=== PATIENT | female | born 1965 | race Caucasian/White ===

== ENCOUNTER 2017-12-05 12:37 | Observation (INO) | payer BC, OTHER ==
--- NOTE | 2017-12-05 13:00 | ED ---
General Adult HPI - General Chief complaint: Dizziness Stated complaint: Rapid Heart Rate, Light headed Time Seen by Provider: 12/05/17 12:40 Source: patient, RN notes reviewed Mode of arrival: wheelchair Limitations: no limitations - History of Present Illness Initial comments: This is a 52-year-old female presents emergency Department complaining of chest palpitations which she felt to be irregular. Patient also states she was short of breath with these symptoms. Patient also complained of jaw pain and arm heaviness. Patient states she did have some discomfort in her chest but she related that to the palpitations. Patient states it started at 4:30 and resolved at about 6:00 and then she went back to bed and she states she's been lying in better since just feeling extremely weak and continues to have the arm heaviness. Patient states she also felt a little lightheaded. Patient denies any recent fever chills or cough. Patient denies any history of diabetes hypertension or high cholesterol. Patient denies any history of smoking. Patient states she has no significant family history of heart disease. Patient denies abdominal pain patient denies nausea vomiting diarrhea. - Related Data Home Medications Medication Instructions Recorded Confirmed Loratadine [Claritin] 10 mg PO DAILY PRN 12/05/17 12/05/17 Allergies Allergy/AdvReac Type Severity Reaction Status Date / Time No Known Allergies Allergy Verified 12/05/17 12:58 Review of Systems ROS Statement: Those systems with pertinent positive or pertinent negative responses have been documented in the HPI. ROS Other: All systems not noted in ROS Statement are negative. Past Medical History Past Medical History: No Reported History History of Any Multi-Drug Resistant Organisms: None Reported Additional Past Surgical History / Comment(s): phlebectomy Past Psychological History: No Psychological Hx Reported Smoking Status: Never smoker Past Alcohol Use History: Rare Past Drug Use History: None Reported General Exam - General Exam Comments Initial Comments: GENERAL: Patient is well-developed and well-nourished. Patient is nontoxic and well- hydrated and is in mild distress. ENT: Neck is soft and supple. No significant lymphadenopathy is noted. Oropharynx is clear. Moist mucous membranes. Neck has full range of motion without eliciting any pain. EYES: The sclera were anicteric and conjunctiva were pink and moist. Extraocular movements were intact and pupils were equal round and reactive to light. Eyelids were unremarkable. PULMONARY: Unlabored respirations. Good breath sounds bilaterally. No audible rales rhonchi or wheezing was noted. CARDIOVASCULAR: There is a regular rate and rhythm without any murmurs gallops or rubs. ABDOMEN: Soft and nontender with normal bowel sounds. No palpable organomegaly was noted. There is no palpable pulsatile mass. SKIN: Skin is clear with no lesions or rashes and otherwise unremarkable. NEUROLOGIC: Patient is alert and oriented x3. Cranial nerves II through XII are grossly intact. Motor and sensory are also intact. Normal speech, volume and content. Symmetrical smile. MUSCULOSKELETAL: Normal extremities with adequate strength and full range of motion. LYMPHATICS: No significant lymphadenopathy is noted PSYCHIATRIC: Normal psychiatric evaluation. Normal interpersonal interactions appears functionally intact in deals appropriately with others. No signs of depression. No signs of anxiety Limitations: no limitations Course Vital Signs 12/05/17 12/05/17 12/05/17 12:40 13:09 14:20 Temperature 98.1 F 98.1 F Pulse Rate 101 H 74 Pulse Rate [ 97 Roller Man ] Respiratory 18 16 Rate Blood Pressure 126/70 121/77 O2 Sat by Pulse 100 100 Oximetry Medical Decision Making - Medical Decision Making EKG shows sinus tachycardia at 102 bpm UT interval is 114 QRS 74 QT interval 326 QTC is 424. Patient's EKG shows no ST segment elevation or depression or T wave abnormalities are noted. - Lab Data Result diagrams: 12/05/17 13:00 12/05/17 13:00 Lab Results 12/05/17 12/05/17 12/05/17 Range/Units 13:00 13:00 13:00 WBC 5.1 (3.8-10.6) k/uL RBC 5.14 (3.80-5.40) m/uL Hgb 16.0 (11.4-16.0) gm/dL Hct 46.2 H (34.0-46.0) % MCV 89.8 (80.0-100.0) fL MCH 31.1 (25.0-35.0) pg MCHC 34.6 (31.0-37.0) g/dL RDW 12.7 (11.5-15.5) % Plt Count 256 (150-450) k/uL Neutrophils % 54 % Lymphocytes % 36 % Monocytes % 7 % Eosinophils % 1 % Basophils % 1 % Neutrophils # 2.8 (1.3-7.7) k/uL Lymphocytes # 1.8 (1.0-4.8) k/uL Monocytes # 0.3 (0-1.0) k/uL Eosinophils # 0.1 (0-0.7) k/uL Basophils # 0.0 (0-0.2) k/uL PT (9.0-12.0) sec INR (<1.2) APTT (22.0-30.0) sec D-Dimer (<0.60) mg/L FEU Sodium 142 (137-145) mmol/L Potassium 4.2 (3.5-5.1) mmol/L Chloride 103 (98-107) mmol/L Carbon Dioxide 25 (22-30) mmol/L Anion Gap 14 mmol/L BUN 10 (7-17) mg/dL Creatinine 0.69 (0.52-1.04) mg/dL Est GFR (CKD-EPI)AfAm >90 (>60 ml/min/1.73 sqM) Est GFR (CKD-EPI)NonAf >90 (>60 ml/min/1.73 sqM) Glucose 129 H (74-99) mg/dL Calcium 9.7 (8.4-10.2) mg/dL Magnesium 1.9 (1.6-2.3) mg/dL Total Bilirubin 0.6 (0.2-1.3) mg/dL AST 27 (14-36) U/L ALT 38 (9-52) U/L Alkaline Phosphatase 45 (38-126) U/L Total Creatine Kinase 103 (30-135) U/L CK-MB (CK-2) 1.9 (0.0-2.4) ng/mL CK-MB (CK-2) Rel Index 1.8 Troponin I 0.023 (0.000-0.034) ng/mL Total Protein 7.1 (6.3-8.2) g/dL Albumin 4.4 (3.5-5.0) g/dL 12/05/17 Range/Units 13:00 WBC (3.8-10.6) k/uL RBC (3.80-5.40) m/uL Hgb (11.4-16.0) gm/dL Hct (34.0-46.0) % MCV (80.0-100.0) fL MCH (25.0-35.0) pg MCHC (31.0-37.0) g/dL RDW (11.5-15.5) % Plt Count (150-450) k/uL Neutrophils % % Lymphocytes % % Monocytes % % Eosinophils % % Basophils % % Neutrophils # (1.3-7.7) k/uL Lymphocytes # (1.0-4.8) k/uL Monocytes # (0-1.0) k/uL Eosinophils # (0-0.7) k/uL Basophils # (0-0.2) k/uL PT 10.4 (9.0-12.0) sec INR 1.1 (<1.2) APTT 24.5 (22.0-30.0) sec D-Dimer 0.40 (<0.60) mg/L FEU Sodium (137-145) mmol/L Potassium (3.5-5.1) mmol/L Chloride (98-107) mmol/L Carbon Dioxide (22-30) mmol/L Anion Gap mmol/L BUN (7-17) mg/dL Creatinine (0.52-1.04) mg/dL Est GFR (CKD-EPI)AfAm (>60 ml/min/1.73 sqM) Est GFR (CKD-EPI)NonAf (>60 ml/min/1.73 sqM) Glucose (74-99) mg/dL Calcium (8.4-10.2) mg/dL Magnesium (1.6-2.3) mg/dL Total Bilirubin (0.2-1.3) mg/dL AST (14-36) U/L ALT (9-52) U/L Alkaline Phosphatase (38-126) U/L Total Creatine Kinase (30-135) U/L CK-MB (CK-2) (0.0-2.4) ng/mL CK-MB (CK-2) Rel Index Troponin I (0.000-0.034) ng/mL Total Protein (6.3-8.2) g/dL Albumin (3.5-5.0) g/dL Disposition Clinical Impression: Atypical angina Disposition: ADMITTED IP TO THIS [facility] Referrals: Darren Soliman MD [Primary Care Provider] - 1-2 days Time of Disposition: 14:21
[2017-12-05 13:18] LABS: Basophils % (A) 1 %; Eosinophils # (A) 0.1 k/uL (0-0.7); Eosinophils % (A) 1 %; HCT 46.2 % (34.0-46.0); Lymphocytes # (A) 1.8 k/uL (1.0-4.8); Lymphocytes % (A) 36 %; MCH 31.1 pg (25.0-35.0); MCHC 34.6 g/dL (31.0-37.0); MCV 89.8 fL (80.0-100.0); Mean Platelet Volume 6.9; Monocytes # (A) 0.3 k/uL (0-1.0); Monocytes % (A) 7 %; Neutrophils # (A) 2.8 k/uL (1.3-7.7); Neutrophils % (A) 54 %; Platelet Count 256 k/uL (150-450); RBC 5.14 m/uL (3.80-5.40); RDW 12.7 % (11.5-15.5); WBC 5.1 k/uL (3.8-10.6)
[2017-12-05 13:30] LABS: ALT 38 U/L (9-52); AST 27 U/L (14-36); Albumin 4.4 g/dL (3.5-5.0); Alkaline Phosphatase 45 U/L (38-126); Anion Gap 14 mmol/L; Blood Urea Nitrogen 10 mg/dL (7-17); Calcium 9.7 mg/dL (8.4-10.2); Carbon Dioxide 25 mmol/L (22-30); Chloride 103 mmol/L (98-107); Glucose 129 mg/dL (74-99); Magnesium 1.9 mg/dL (1.6-2.3); Potassium 4.2 mmol/L (3.5-5.1); Sodium 142 mmol/L (137-145); Total Bilirubin 0.6 mg/dL (0.2-1.3); Total Protein 7.1 g/dL (6.3-8.2)
[2017-12-05 13:32] LABS: D-Dimer 0.4 mg/L FEU (<0.60); INR 1.1 (<1.2); Partial Thromboplastin Time 24.5 sec (22.0-30.0); Prothrombin Time 10.4 sec (9.0-12.0)
--- NOTE | 2017-12-05 13:35 | XR ---
EXAMINATION TYPE: XR chest 2V DATE OF EXAM: 12/05/2017 COMPARISON: NONE HISTORY: Difficulty breathing TECHNIQUE: Frontal and lateral views of the chest are obtained. FINDINGS: There is no focal air space opacity, pleural effusion, or pneumothorax seen. The cardiac silhouette size is within normal limits. The osseous structures are intact. There are overlying car diac leads. IMPRESSION: No acute cardiopulmonary process.
[2017-12-05 14:00] LABS: Creatine Kinase MB 1.9 ng/mL (0.0-2.4); Troponin I 0.023 ng/mL (0.000-0.034)
[2017-12-05] MEDS ORDERED: NITROGLYCERIN SL TABS 0.4 MG TAB SUBLINGUAL PRN (14:22)
[2017-12-05] MEDS: NITROGLYCERIN OINT 1 INCH/GM PACKET TOPICAL SCH ×2 (19:45→23:19)
[2017-12-05 20:12] LABS: Creatine Kinase MB 1.4 ng/mL (0.0-2.4)
[2017-12-05 20:17] LABS: Troponin I 0.041 ng/mL (0.000-0.034)
[2017-12-05] MEDS ORDERED: HEPARIN SODIUM,PORCINE 5,000 UNIT/ML 1 ML VIAL IV PRN (20:53)
[2017-12-05] MEDS ORDERED: HEPARIN SODIUM,PORCINE 5,000 UNIT/ML 1 ML VIAL IV ONE (21:00)
[2017-12-05] MEDS ORDERED: HEPARIN SODIUM,PORCINE/D5W PMX 25,000 UNIT in DEXTROSE/WATER 1 500ML.BAG IV SCH (21:15)
[2017-12-05 21:26] LABS: INR 1.1 (<1.2); Partial Thromboplastin Time 24.1 sec (22.0-30.0); Prothrombin Time 10.7 sec (9.0-12.0)
[2017-12-06 02:40] LABS: Troponin I 0.04 ng/mL (0.000-0.034)
[2017-12-06] MEDS: NITROGLYCERIN OINT 1 INCH/GM PACKET TOPICAL SCH (04:57)
[2017-12-06 05:09] LABS: Basophils % (A) 1 %; Eosinophils # (A) 0.1 k/uL (0-0.7); Eosinophils % (A) 2 %; HCT 40.7 % (34.0-46.0); HGB 13.8 gm/dL (11.4-16.0); Lymphocytes # (A) 2.3 k/uL (1.0-4.8); Lymphocytes % (A) 42 %; MCH 31.1 pg (25.0-35.0); MCHC 33.9 g/dL (31.0-37.0); MCV 91.9 fL (80.0-100.0); Monocytes # (A) 0.4 k/uL (0-1.0); Monocytes % (A) 7 %; Neutrophils # (A) 2.5 k/uL (1.3-7.7); Neutrophils % (A) 46 %; Platelet Count 174 k/uL (150-450); RBC 4.43 m/uL (3.80-5.40); RDW 12.7 % (11.5-15.5); WBC 5.5 k/uL (3.8-10.6)
[2017-12-06] MEDS ORDERED: LORATADINE 10 MG TAB PO PRN (06:54)
--- NOTE | 2017-12-06 07:10 | P.HPIM ---
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 She came in essentially because of posterior headache with significant palpitations and rapidity of heart beat. Some nausea and dizziness but she also had some intermittent jaw pain. She states last month while doing some yard work, she and bending over she started having "heartburn" type symptoms. She is somewhat discounted this as GI-related but states that her symptoms haven't is somewhat starting since about 4 weeks ago. They became more prominent in the last 48 hours and she came in for appropriate evaluation. Troponin is slightly elevated at this time. She has minimal risk factors except she is not very active as far as exercise but works and stands as a beautician. She is nonsmoker. No significant family history of premature heart disease. Although she states heart disease in a grandmother on maternal side. Review of Systems Constitutional: Denies chills, Denies fever Eyes: denies blurred vision, denies pain Ears, nose, mouth and throat: Denies headache, Denies sore throat Respiratory: Denies cough Gastrointestinal: Denies abdominal pain, Denies diarrhea, Denies nausea, Denies vomiting Genitourinary: Denies dysuria, Denies hematuria Musculoskeletal: Denies myalgias Past Medical History Past Medical History: No Reported History Additional Past Medical History / Comment(s): Seasonal sinus problems, bronchitis, palpitations/"heart burn" and some SOB past month. History of Any Multi-Drug Resistant Organisms: None Reported Past Surgical History: Orthopedic Surgery, Uterine Ablation Additional Past Surgical History / Comment(s): Bilateral legs varicose vein stripping, D&C, uterine ablation, R dorsal foot bone spur removed. Past Anesthesia/Blood Transfusion Reactions: Postoperative Nausea & Vomiting ( PONV) Smoking Status: Never smoker - Past Family History Father Family Medical History: COPD Additional Family Medical History / Comment(s): Father was a smoker. Mother Family Medical History: Cancer Additional Family Medical History / Comment(s): Mother had leukemia and tuberculosis. Grandmother on mom's side had CAD/pacer. Medications and Allergies Home Medications Medication Instructions Recorded Confirmed Type Loratadine [Claritin] 10 mg PO DAILY PRN 12/05/17 12/05/17 History Allergies Allergy/AdvReac Type Severity Reaction Status Date / Time No Known Allergies Allergy Verified 12/05/17 12:58 Physical Exam Vitals: Vital Signs Temp Pulse Pulse Resp BP BP Pulse Ox 12/06/17 04:45 97.3 F L 68 16 136/66 96 12/05/17 23:10 98.3 F 74 16 117/61 94 L 12/05/17 20:00 96.8 F L 70 16 123/67 96 12/05/17 16:58 74 18 12/05/17 16:54 97.3 F L 74 18 140/84 99 12/05/17 15:25 97.8 F 68 16 133/82 99 12/05/17 14:20 98.1 F 74 16 121/77 100 12/05/17 13:09 97 12/05/17 12:40 98.1 F 101 H 18 126/70 100 Intake and Output 12/05/17 12/06/17 12/06/17 22:59 06:59 14:59 Intake Total 240 172 Output Total 325 Balance -85 172 Intake: Intake, IV Titration 172 Amount Heparin Sodium,Porcine/ 172 D5w Pmx 25,000 unit In Dextrose/Water 1 500ml. bag @ 11.096 UNITS/KG/HR 20 mls/hr IV .Q24H [facility] Rx #:[id number] Oral 240 Output: Urine 325 Other: # Voids 1 Weight 90.4 kg - Constitutional General appearance: no acute distress - EENT Eyes: EOMI - Neck Neck: no lymphadenopathy - Respiratory Respiratory: bilateral: CTA - Cardiovascular Rhythm: regular Heart sounds: normal: S1, S2 Abnormal Heart Sounds: no S3 Gallop - Gastrointestinal General gastrointestinal: soft, no tenderness - Integumentary Integumentary: no cellulitis - Neurologic Neurologic: CNII-XII intact - Psychiatric Psychiatric: A&O x's 3, appropriate affect, intact judgment & insight Results CBC & Chem 7: 12/06/17 04:54 12/05/17 13:00 Labs: Abnormal Lab Results - Last 24 Hours (Table) 12/05/17 12/05/17 12/05/17 Range/Units 13:00 13:00 19:05 Hct 46.2 H (34.0-46.0) % APTT (22.0-30.0) sec Glucose 129 H (74-99) mg/dL Troponin I 0.041 H* (0.000-0.034) ng/mL 12/06/17 12/06/17 Range/Units 00:49 04:54 Hct (34.0-46.0) % APTT 43.1 H (22.0-30.0) sec Glucose (74-99) mg/dL Troponin I 0.040 H* (0.000-0.034) ng/mL Thrombosis Risk Factor Assmnt - Choose All That Apply Any of the Below Risk Factors Present?: Yes Each Factor Represents 1 point: Age 41-60 years, Obesity (BMI >25) Other Risk Factors: No Other congenital or acquired thrombophilia - If yes, enter type in comment: No Thrombosis Risk Factor Assessment Total Risk Factor Score: 2 Thrombosis Risk Factor Assessment Level: Low Risk Assessment and Plan (1) Atypical angina Current Visit: Yes Status: Acute Code(s): I20.8 - OTHER FORMS OF ANGINA PECTORIS SNOMED Code(s): 824384666 (2) Allergic rhinitis Current Visit: Yes Status: Acute Code(s): J30.9 - ALLERGIC RHINITIS, UNSPECIFIED SNOMED Code(s): 78081006 Plan: Given the atypical nature of her symptomatology, question stress thallium versus stress echo. Cardiology is not consulted. Rule out myocardial infarction. Slight elevation of troponin. She is a full code otherwise. Anticipate discharge in next 24-40 hours if a symptomatically and cardiac testing is nominal. Time with Patient: Greater than 30
[2017-12-06 07:21] LABS: Cholesterol 168 mg/dL (<200); HDL Cholesterol 51 mg/dL (40-60); LDL Cholesterol,Calculated 101 mg/dL (0-99); Triglycerides 80 mg/dL (<150)
--- NOTE | 2017-12-06 08:05 | P.CRDCN ---
History of Present Illness Consult date: 12/06/17 Requesting physician: Darren Soliman Consult reason: chest pain Chief complaint: Chest pain History of present illness: This pleasant 52-year-old female with no prior documented history of hypertension, no diabetes, no hyperlipidemia, nonsmoker, she does drink several cups of coffee a day and occasionally drinks alcohol. She presents to the hospital with symptoms of heart racing and palpitations, which she states woke her up from sleep around 4 AM Tuesday morning. She states that she tried to lay still and takes a deep breath to see if the symptoms would dissipate, they seemed to last for a while but ultimately subsided, shortly thereafter they return patient care to the emergency room for further evaluation. Patient states that it feels like her heart is beating fast and irregular time this occurs. She also states that approximately one month ago when she was working in her garden that she noticed symptoms of burning in her chest which she thought may be acid reflux attributed to her excessive caffeine intake. Patient also states that when she is out walking with her she has noticed that she gets more short of breath than her usual. At the time of my examination this morning she is comfortable, denies any chest discomfort, no palpitations, no shortness of breath. Initial EKG on presentation here showed a sinus tachycardia with no acute changes. Subsequent EKG this morning shows a normal sinus rhythm with no acute changes. Blood pressure 136/60 heart rate in the 60s, temperature 97.3 she is 96% on room air. CBC is normal, d-dimer 0.4, sodium 142, potassium 4.2, BUN 10, creatinine 0.6. Neck exam level I.9. Initial troponin 0.0-3, subsequent troponin 0.041 and 040. Cholesterol is 168, LDL 101, HDL 51, triglycerides 80. Patient was initiated on IV heparin in the emergency room, she is also on a baby aspirin and sublingual nitroglycerin. Past Medical History Past Medical History: No Reported History Additional Past Medical History / Comment(s): Seasonal sinus problems, bronchitis, palpitations/"heart burn" and some SOB past month. History of Any Multi-Drug Resistant Organisms: None Reported Past Surgical History: Orthopedic Surgery, Uterine Ablation Additional Past Surgical History / Comment(s): Bilateral legs varicose vein stripping, D&C, uterine ablation, R dorsal foot bone spur removed. Past Anesthesia/Blood Transfusion Reactions: Postoperative Nausea & Vomiting ( PONV) Smoking Status: Never smoker - Past Family History Father Family Medical History: COPD Additional Family Medical History / Comment(s): Father was a smoker. Mother Family Medical History: Cancer Additional Family Medical History / Comment(s): Mother had leukemia and tuberculosis. Grandmother on mom's side had CAD/pacer. Medications and Allergies Home Medications Medication Instructions Recorded Confirmed Type Loratadine [Claritin] 10 mg PO DAILY PRN 12/05/17 12/05/17 History Allergies Allergy/AdvReac Type Severity Reaction Status Date / Time No Known Allergies Allergy Verified 12/05/17 12:58 Physical Exam Vitals: Vital Signs Temp Pulse Pulse Resp BP BP Pulse Ox 12/06/17 04:45 97.3 F L 68 16 136/66 96 12/05/17 23:10 98.3 F 74 16 117/61 94 L 12/05/17 20:00 96.8 F L 70 16 123/67 96 12/05/17 16:58 74 18 12/05/17 16:54 97.3 F L 74 18 140/84 99 12/05/17 15:25 97.8 F 68 16 133/82 99 12/05/17 14:20 98.1 F 74 16 121/77 100 12/05/17 13:09 97 12/05/17 12:40 98.1 F 101 H 18 126/70 100 Intake and Output 12/05/17 12/06/17 12/06/17 22:59 06:59 14:59 Intake Total 240 172 Output Total 325 Balance -85 172 Intake: Intake, IV Titration 172 Amount Heparin Sodium,Porcine/ 172 D5w Pmx 25,000 unit In Dextrose/Water 1 500ml. bag @ 11.096 UNITS/KG/HR 20 mls/hr IV .Q24H [facility] Rx #:[id number] Oral 240 Output: Urine 325 Other: # Voids 1 Weight 90.4 kg PHYSICAL EXAMINATION: GENERAL: This is a pleasant 52-year-old female in no apparent distress at the time of my examination. HEENT: Head is atraumatic, normocephalic. Pupils equal, round. Sclera anicteric. Conjunctiva are clear. Mucous membranes of the mouth are moist. Neck is supple. There is no elevated jugular venous pressure.] bruit is heard. HEART EXAMINATION: Heart S1, S2 normal. No murmur or gallop heard. CHEST EXAMINATION: Lungs are clear to auscultation and precussion. No chest wall tenderness is noted on palpation or with deep breathing. ABDOMEN: Soft, nontender. Bowel sounds are heard. No organomegaly noted. EXTREMITIES: 2+ peripheral pulses with no evidence of peripheral edema and no calf tenderness noted. NEUROLOGIC patient is awake, alert and oriented -3. . Results 12/06/17 04:54 12/05/17 13:00 Cardiac Enzymes 12/05/17 12/05/17 12/05/17 Range/Units 13:00 13:00 19:05 AST 27 (14-36) U/L CK-MB (CK-2) 1.9 1.4 (0.0-2.4) ng/mL Troponin I 0.023 0.041 H* (0.000-0.034) ng/mL 12/06/17 Range/Units 00:49 AST (14-36) U/L CK-MB (CK-2) 1.0 (0.0-2.4) ng/mL Troponin I 0.040 H* (0.000-0.034) ng/mL Coagulation 12/05/17 12/05/17 12/06/17 Range/Units 13:00 20:59 04:54 PT 10.4 10.7 (9.0-12.0) sec APTT 24.5 24.1 43.1 H (22.0-30.0) sec Lipids 12/06/17 Range/Units 04:54 Triglycerides 80 (<150) mg/dL Cholesterol 168 (<200) mg/dL HDL Cholesterol 51 (40-60) mg/dL CBC 12/05/17 12/06/17 Range/Units 13:00 04:54 WBC 5.1 5.5 (3.8-10.6) k/uL RBC 5.14 4.43 (3.80-5.40) m/uL Hgb 16.0 13.8 (11.4-16.0) gm/dL Hct 46.2 H 40.7 (34.0-46.0) % Plt Count 256 174 (150-450) k/uL Comprehensive Metabolic Panel 12/05/17 Range/Units 13:00 Sodium 142 (137-145) mmol/L Potassium 4.2 (3.5-5.1) mmol/L Chloride 103 (98-107) mmol/L Carbon Dioxide 25 (22-30) mmol/L BUN 10 (7-17) mg/dL Creatinine 0.69 (0.52-1.04) mg/dL Glucose 129 H (74-99) mg/dL Calcium 9.7 (8.4-10.2) mg/dL AST 27 (14-36) U/L ALT 38 (9-52) U/L Alkaline Phosphatase 45 (38-126) U/L Total Protein 7.1 (6.3-8.2) g/dL Albumin 4.4 (3.5-5.0) g/dL Current Medications Generic Name Dose Route Start Last Admin Trade Name [place] PRN Reason Stop Dose Admin Aspirin 81 mg 12/06/17 09:00 Aspirin PO DAILY [facility] Heparin Sodium (Porcine) 0 unit 12/05/17 20:53 Heparin IV PER PROTOCOL PRN Low PTT Protocol Heparin Sodium/Dextrose 25,000 500 mls @ 20 mls/hr 12/05/17 21:15 12/06/17 06 :36 unit/ IV Solution IV 13.096 units/kg/hr .Q24H [facility] 23.6 mls/hr Protocol Titration 11.096 UNITS/KG/HR Loratadine 10 mg 12/06/17 06:54 Claritin PO DAILY PRN Allergy Symptoms Nitroglycerin 0.4 mg 12/05/17 14:22 Nitrostat SUBLINGUAL Q5M PRN Chest Pain Nitroglycerin 1 inch 12/05/17 18:00 12/06/17 04:57 Nitro-Bid Oint TOPICAL Not Given Q6HR [facility] Intake and Output 12/05/17 12/06/17 12/06/17 22:59 06:59 14:59 Intake Total 240 172 Output Total 325 Balance -85 172 Intake: Intake, IV Titration 172 Amount Heparin Sodium,Porcine/ 172 D5w Pmx 25,000 unit In Dextrose/Water 1 500ml. bag @ 11.096 UNITS/KG/HR 20 mls/hr IV .Q24H [facility] Rx #:[id number] Oral 240 Output: Urine 325 Other: # Voids 1 Weight 90.4 kg 12/06/17 04:54 12/05/17 13:00 EKG Interpretations (text) Initial EKG shows a sinus tachycardia with no acute changes. Subsequently EKG normal sinus rhythm with no acute changes. Assessment and Plan Plan: Assessment and plan #1 symptoms of palpitations and heart racing, somewhat atypical features for acute coronary syndrome. Troponins 0.023, 0.041, 0.040. EKG showed sinus tachycardia with no acute changes, subsequent EKG normal sinus with no acute changes. D-dimer negative. #2 cardiac risk factors negative for hypertension, no diabetes, no hyperlipidemia, nonsmoker, no family history of premature coronary artery disease. Plan We will obtain an echocardiogram with Doppler study. We will also obtain a fourth troponin value. Obtain TSH level. Patient has been advised by Dr. Nba Dumas to undergo stress echocardiographic study today. If negative patient will be discharged home from our perspective with a Holter monitor. If the test is positive, patient will be advised to undergo cardiac catheterization. DNP note has been reviewed, I agree with a documented findings and plan of care. Patient was seen and examined.
[2017-12-06] MEDS ORDERED: ASPIRIN 81 MG PO SCH (09:00)
[2017-12-06] MEDS ORDERED: ASPIRIN 325 MG TAB PO SCH (09:00)
[2017-12-06 10:08] VITALS: RESP 18
[2017-12-06 12:13] VITALS: BP 123/71; PULSE 65; TEMP 96.9
--- NOTE | 2017-12-06 13:00 | ECHOS ---
STRESS ECHOCARDIOGRAM DATE OF SERVICE: 12/06/2017 BASELINE HEART RATE: 78 BASELINE BLOOD PRESSURE: 115/70 MAXIMUM HEART RATE: 152 MAXIMUM BLOOD PRESSURE: 129/93 85% MPHR: 141 100% MPHR: 166 MAXIMUM STAGE REACHED: II TOTAL EXERCISE TIME: 7:32 CLINICAL INFORMATION: Baseline rhythm is sinus mechanism, rate of 78. Left axis deviation. Baseline blood pressure 115/70 mmHg. Patient exercised on Twin protocol for 7 minute 32 seconds reaching a peak heart rate of 152 beats per minute, which is equal, to 91% of maximum predicted heart rate. Peak blood pressure 129/93 mmHg. Test was terminated due to fatigue. No chest pain. Electrocardiograph monitoring revealed 0.[address]-segment depression that resolved in recovery. FINDINGS: Baseline echocardiogram revealed normal left ventricular function. At peak exercise, there was normal wall motion augmentation with no hypokinesis or dyskinesis. CONCLUSION: 1. Average exercise tolerance was borderline positive electrocardiographic stress testing. 2. Normal stress echocardiogram with no evidence of stress induced ischemia. MMODL / IJN: [id number] /
--- NOTE | 2017-12-06 13:36 | ECHOF ---
Referral Reason:chest pain MEASUREMENTS -------- HEIGHT: 167.6 cm WEIGHT: 90.3 kg BP: 136/66 IVSd: 1.1 cm (0.6 - 1.1) LVIDd: 4.5 cm (3.9 - 5.3) LVPWd: 0.9 cm (0.6 - 1.1) IVSs: 1.8 cm LVIDs: 2.3 cm LVPWs: 1.6 cm LAESV Index (A-L): 22.61 ml/m Ao Diam: 3.0 cm (2.0 - 3.7) AV Cusp: 1.9 cm (1.5 - 2.6) LA Diam: 2.9 cm (2.7 - 3.8) MV EXCURSION: 15.792 mm (> 18.000) MV EF SLOPE: 197 mm/s (70 - 150) EPSS: 0.4 cm MV E Rodney: 0.58 m/s MV DecT: 274 ms MV A Rodney: 0.42 m/s MV E/A Ratio: 1.39 RAP: 5.00 mmHg RVSP: 14.08 mmHg FINDINGS -------- Sinus rhythm. This was a technically adequate study. The left ventricular size is normal. Left ventricular wall thickness is normal. Overall left vent ricular systolic function is normal with, an EF between 55 - 60 %. The right ventricle is normal in size and function. The left atrium is normal in size. The right atrium is normal in size. The aortic valve is trileaflet, and appears structurally normal. No aortic stenosis or regurgitation. The mitral valve is normal. There is trace to mild mitral regurgitation. Trace tricuspid regurgitation present. Right ventricular systolic pressure is normal at < 35 mmHg. The right ventricular systolic pressure, as measured by Doppler, is 14.08mmHg. There is no pulmonic regurgitation present. The aortic root size is normal. Normal inferior vena cava with normal inspiratory collapse consistent with estimated right atrial pre ssure of 5 mmHg. There is no pericardial effusion. CONCLUSIONS -------- 1. Sinus rhythm. 2. This was a technically adequate study. 3. The left ventricular size is normal. 4. Left ventricular wall thickness is normal. 5. Overall left ventricular systolic function is normal with, an EF between 55 - 60 %. 6. The left atrium is normal in size. 7. The aortic valve is trileaflet, and appears structurally normal. No aortic stenosis or regurgitati on. 8. There is trace to mild mitral regurgitation. 9. Trace tricuspid regurgitation present. 10. Right ventricular systolic pressure is normal at < 35 mmHg. 11. There is no pulmonic regurgitation present. 12. The aortic root size is normal. 13. Normal inferior vena cava with normal inspiratory collapse consistent with estimated right atrial pressure of 5 mmHg. 14. There is no pericardial effusion. [employer] TEACHER: Patricia Shay RDCS
--- NOTE | 2017-12-06 15:49 | P.DS ---
Providers Date of admission: 12/05/17 14:22 Attending physician: Darren Soliman Consults: 12/05/17 14:22 Consult Physician Urgent Consulting Provider: [facility] Consult Reason/Comments: Atypical angina Do you want consulting provider notified?: Yes Primary care physician: Darren Soliman - Discharge Diagnosis(es) (1) Atypical angina Current Visit: Yes Status: Acute (2) Allergic rhinitis Current Visit: Yes Status: Acute Hospital Course: The patient is here essentially for atypical angina. Stress echocardiogram was done and cardiology was consulted. The patient was discharged in stable condition after negative stress testing to follow-up with me in 3 days. Plan - Discharge Summary Discharge Rx Participant: No New Discharge Prescriptions: No Action Loratadine [Claritin] 10 mg PO DAILY PRN PRN Reason: Allergy Symptoms Discharge Medication List Loratadine [Claritin] 10 mg PO DAILY PRN 12/05/17 [History] Follow up Appointment(s)/Referral(s): Darren Soliman MD [Primary Care Provider] - 1-2 days
== END 2017-12-06 17:21 | disposition home or self-care (01) ==
LOC: EC 12:37 → 6SEL 14:22
PROVIDERS: ADMIT Family Medicine; ATTEND Family Medicine
DX: I20.9 Angina pectoris, unspecified (principal); J30.9 Allergic rhinitis, unspecified; R00.0 Tachycardia, unspecified; R77.8 Other specified abnormalities of plasma proteins; R00.2 Palpitations; R12 Heartburn; E66.9 Obesity, unspecified; Z68.32 Body mass index [BMI] 32.0-32.9, adult; Z82.5 Family history of asthma and other chronic lower respiratory diseases; Z80.6 Family history of leukemia; Z83.1 Family history of other infectious and parasitic diseases; Z82.49 Family history of ischemic heart disease and other diseases of the circulatory system; Z81.2 Family history of tobacco abuse and dependence
CPT/HCPCS: 99285 ×2; 96374; 36415; 93005; 93306; 93351; 85379 ×2; 80061; 80053; 82550 ×2; 82553 ×2; 83735; 84443; 84484 ×2; 85025 ×2; 85610; 85730 ×2; 71046; G0378 ×2; J1644 ×2

== ENCOUNTER → 2021-01-12 | Outpatient (CLI) | payer OTHER ==
--- NOTE | 2021-01-13 13:22 | MM ---
Reason for exam: screening (asymptomatic). Last mammogram was performed 7 years and 1 month ago. Physical Findings: A clinical breast exam by your physician is recommended on an annual basis and results should be correlated with mammographic findings. MG Screening Mammo w CAD Bilateral CC and MLO view(s) were taken. Prior study comparison: December 03, 2013, bilateral MG screening mammo w CAD. The breast tissue is heterogeneously dense. This may lower the sensitivity of mammography. ASSESSMENT: Negative, BI-RAD 1 RECOMMENDATION: Routine screening mammogram of both breasts in 1 year.
== END | disposition home or self-care (01) ==
LOC: RADMAMWWP 08:14
PROVIDERS: ATTEND Family Medicine
DX: Z12.31 Encounter for screening mammogram for malignant neoplasm of breast (principal)
CPT/HCPCS: 77067

== ENCOUNTER 2021-01-22 09:34 | Day surgery (SDC) | payer OTHER ==
[2021-01-20 15:36] VITALS: BMI 30.2
[~2021-01-22 09:34] MED LIST: LACTATED RINGERS 1,000 ML IV SCH
[2021-01-22 10:00] VITALS: TEMP 97.8
[2021-01-22] MEDS ORDERED: LACTATED RINGERS 1,000 ML IV ONE (10:00)
[2021-01-22] MEDS ORDERED: ONDANSETRON 4 MG/2 ML VIAL ONE (10:02)
[2021-01-22] MEDS ORDERED: ONDANSETRON 4 MG/2 ML VIAL IVP ONE (10:02)
--- NOTE | 2021-01-22 10:18 | P.GSHP ---
History of Present Illness H&P Date: 01/22/21 Chief Complaint: Screening colonoscopy This a 55-year-old female presents today for screening colonoscopy. Patient denies a significant GI complaints. Past Medical History Past Medical History: No Reported History Additional Past Medical History / Comment(s): hx Seasonal sinus problems, bronchitis, palpitations/"heart burn" and some SOB in past History of Any Multi-Drug Resistant Organisms: None Reported Past Surgical History: Orthopedic Surgery, Uterine Ablation Additional Past Surgical History / Comment(s): Bilateral legs varicose vein stripping, D&C, uterine ablation, R dorsal foot bone spur removed. Past Anesthesia/Blood Transfusion Reactions: Postoperative Nausea & Vomiting (PONV) Smoking Status: Never smoker - Past Family History Father Family Medical History: COPD Additional Family Medical History / Comment(s): Father was a smoker. Mother Family Medical History: Cancer Additional Family Medical History / Comment(s): Mother had leukemia and tuberculosis. Grandmother on mom's side had CAD/pacer. Medications and Allergies Home Medications Medication Instructions Recorded Confirmed Type Loratadine [Claritin] 10 mg PO DAILY PRN 12/05/17 01/20/21 History Allergies Allergy/AdvReac Type Severity Reaction Status Date / Time No Known Allergies Allergy Verified 01/20/21 15:31 Surgical - Exam Vital Signs Temp Pulse Resp BP Pulse Ox 97.8 F 78 18 136/78 98 01/22/21 09:53 01/22/21 09:53 01/22/21 09:53 01/22/21 09:53 01/22/21 09:53 - General well developed, well nourished, no distress - Eyes PERRL - ENT normal pinna - Neck no masses - Respiratory normal expansion - Cardiovascular Rhythm: regular - Abdomen Abdomen: soft, non tender Assessment and Plan Assessment: We'll perform screening colonoscopy
[2021-01-22] MEDS ORDERED: LIDOCAINE 1% INJ 10MG/ML (20 ML MDV) ONE (10:23)
[2021-01-22] MEDS ORDERED: PROPOFOL 10 MG/ML 20 ML VIAL IV ONE (10:23)
[2021-01-22 10:47] VITALS: RESP 16
[2021-01-22 11:15] VITALS: BP 126/76; PULSE 55
--- NOTE | 2021-02-20 10:38 | P.OP ---
Date of Procedure: 01/26/21 Preoperative Diagnosis: Screening colonoscopy Postoperative Diagnosis: Normal colonoscopy Procedure(s) Performed: Colonoscopy Anesthesia: MAC Surgeon: David Stovall Pathology: none sent Condition: stable Disposition: PACU Description of Procedure: PROCEDURE: The patient was placed on the endoscopy table in the lateral position. Digital rectal examination was performed which revealed no abnormalities. T Flexible colonoscope was then placed in the patient's anus and passed throughout the entire colon. The ileocecal valve was visualized. The cecum, ascending, transverse, descending and sigmoid colon were normal. The rectum was normal as well. There were no masses, polyps or diverticula noted in the entire colon. SUMMARY OF FINDINGS: Normal colonoscopy.
== END 2021-01-22 11:30 | disposition home or self-care (01) ==
LOC: ORWHC2ENDO 09:34
PROVIDERS: ATTEND Surgery
DX: Z12.11 Encounter for screening for malignant neoplasm of colon (principal); Z82.49 Family history of ischemic heart disease and other diseases of the circulatory system; R00.2 Palpitations; K21.9 Gastro-esophageal reflux disease without esophagitis; Z87.09 Personal history of other diseases of the respiratory system
CPT/HCPCS: 45378; J2405; J2001; J2704

== ENCOUNTER → 2023-03-14 | Outpatient (CLI) | payer OTHER ==
--- NOTE | 2023-03-14 15:04 | US ---
EXAMINATION TYPE: US kidneys/renal and bladder DATE OF EXAM: 03/14/2023 COMPARISON: NONE CLINICAL INDICATION: Female, 57 years old with history of R31.1 BENIGN ESSENTIAL MICROSCOPIC HEMATURI A; Pt states microscopic hematuria EXAM MEASUREMENTS: Right Kidney: 12.0 x 5.4 x 4.9 cm Left Kidney: 10.8 x 5.1 x 4.0 cm Right Kidney: Possible double collecting system, no evidence of hydro Left Kidney: No evidence of hydro, lower pole gassed out Bladder: wnl Bilateral Jets seen: No There is no evidence for hydronephrosis at this point in time. No nephrolithiasis is seen. No juan s are identified. The urinary bladder is anechoic. Bilateral ureteral jets are seen. 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 Otherwise unremarkable study.
== END | disposition home or self-care (01) ==
LOC: RADUSWWP 14:17
PROVIDERS: ATTEND Urology
DX: R31.1 Benign essential microscopic hematuria (principal)
CPT/HCPCS: 76770

== ENCOUNTER → 2024-02-06 | Outpatient (CLI) | payer OTHER ==
--- NOTE | 2024-03-06 08:44 | MM ---
Reason for Exam: Screening (asymptomatic). Last mammogram was performed 3 year(s) and 1 month(s) ago. Patient History: Menarche at age 11. First Full-Term at age 26. Postmenopausal. Risk Values: Akila 5 year model risk: 1.6%. NCI Lifetime model risk: 8.1%. Prior Study Comparison: 12/03/2013 Bilateral Screening Mammogram, [facility]. 01/12/2021 Bilateral Screening Mammogram, [facility]. Tissue Density: The breasts are heterogeneously dense, which may obscure small masses. Findings: Analyzed By CAD. Right breast: There is no suspicious group of microcalcifications or new suspicious mass. Left breast: There is no suspicious group of microcalcifications or new suspicious mass. Overall Assessment: Negative, BI-RAD 1 Management: Screening Mammogram of both breasts in [address] [facility] will attempt to contact patient to return for supplemental views and ultrasound if indicated. Patient should continue monthly self-breast exams. A clinical breast exam by your physician is recommended on an annual basis. This exam should not preclude additional follow-up of suspicious palpable abnormalities. Note on Akila scores and lifetime risk: 1. A Akila score greater than 3% is considered moderate risk. If this is the case, consider specialist referral to assess eligibility for a risk reducing agent. 2. If overall lifetime risk for the development of breast cancer is 20% or higher, the patient may qualify for future screening with alternating mammogram and breast MRI. Electronically signed and approved by: Eloy Obrien DO
== END | disposition home or self-care (01) ==
LOC: RADMAMWWP 09:35
PROVIDERS: ATTEND Family Medicine
DX: Z12.31 Encounter for screening mammogram for malignant neoplasm of breast (principal); Z78.0 Asymptomatic menopausal state; R92.333 Mammographic heterogeneous density, bilateral breasts
CPT/HCPCS: 77063; 77067

== ENCOUNTER → 2024-03-13 | Outpatient (CLI) | payer OTHER ==
--- NOTE | 2024-03-13 15:05 | US ---
EXAMINATION TYPE: US transvaginal DATE OF EXAM: 03/13/2024 COMPARISON: NONE CLINICAL INDICATION: Female, 58 years old with history of R31.9 HEMATURIA; bleeding TECHNIQUE: Transvaginal (TV). EXAM MEASUREMENTS: Uterus: 6.8 x 3.3 x cm Endometrial Stripe: .5 cm 1. Uterus: Anteverted 2. Endometrium: wnl 3. Right Ovary: Obscured by overlying bowel gas 4. Left Ovary: Obscured by overlying bowel gas 5. Bilateral Adnexa: wnl 6. Posterior cul-de-sac: wnl IMPRESSION: 1. Uterus has a normal appearance. The ovaries are secured by bowel gas. No abnormal fluid collection in the pelvis.
== END | disposition home or self-care (01) ==
LOC: RADUSWWP 13:28
PROVIDERS: ATTEND Family Medicine
DX: R31.9 Hematuria, unspecified (principal)
CPT/HCPCS: 76830